=== PATIENT | female | born 1940 | race Hispanic/Latino ===

== ENCOUNTER 2018-03-16 13:07 | Inpatient (IN) | payer MEDICARE, OTHER ==
--- NOTE | 2018-03-16 13:49 | ED PDOC ---
Arrival/HPI - General Chief Complaint: Shortness Of Breath Time Seen by Provider: 03/16/18 13:21 Historian: Patient, Family - History of Present Illness Narrative History of Present Illness (Text): 03/16/18 13:45 77 year old female, with past medical history of COPD and Lung CA, presents to the Emergency Department complaining of shortness of breath associated with cough for past 3 days. Patient informs worsening symptoms this morning prompting her to present to the Emergency Department fro medical evaluation. Patient states symptoms are similar to her past episodes of COPD. Patient denies any other associated somatic complaints. Patient denies any fever, chills, nausea, vomiting, diarrhea, abdominal pain, chest pain, headache, dizziness, neck pain, back pain, or any other complaints. As per son, patient has not been started on chemotherapy yet secondary to insurance complications. PMD: Dr. Hernández Time/Duration: < week Symptom Onset: Gradual Symptom Course: Unchanged Activities at Onset: Light Context: Home Past Medical History - Provider Review Nursing Documentation Reviewed: Yes - Infectious Disease Hx of Infectious Diseases: None - Tetanus Immunization Tetanus Immunization: Unknown - Reproductive Menopause: Yes - Cardiac Hx Pacemaker: No - Pulmonary Hx Chronic Obstructive Pulmonary Disease (COPD): Yes Hx Lung Cancer: Yes - Neurological Hx Paralysis: No - Hematological/Oncological Hx Blood Transfusions: No Hx Blood Transfusion Reaction: No - Musculoskeletal/Rheumatological Hx Musculoskeletal Disorders: Yes - Psychiatric Hx Emotional Abuse: No Hx Physical Abuse: No Hx Substance Use: No - Anesthesia Hx Anesthesia Reactions: No Hx Malignant Hyperthermia: No - Suicidal Assessment Feels Threatened In Home Enviroment: No Family/Social History - Physician Review Nursing Documentation Reviewed: Yes Family/Social History: Unknown Family HX Smoking Status: Former Smoker Hx Alcohol Use: No Hx Substance Use: No Hx Substance Use Treatment: No Allergies/Home Meds Allergies/Adverse Reactions: Allergies No Known Allergies Allergy (Unverified 06/30/14 10:53) Home Medications: Home Meds Medication Instructions Recorded Confirmed Albuterol Sulfate [Proair Hfa] 0.09 mg IH PRN PRN 01/25/18 02/01/18 Fluticasone/Vilanterol [Breo 1 pow IH DAILY 01/25/18 02/01/18 Ellipta] RX: Ipratropium Odon 5 gm INH QID 01/25/18 02/01/18 Review of Systems - Physician Review All systems were reviewed & negative as marked: Yes - Review of Systems Constitutional: absent: Fevers Respiratory: SOB, Cough Cardiovascular: absent: Chest Pain Gastrointestinal: absent: Abdominal Pain, Diarrhea, Nausea, Vomiting Genitourinary Female: absent: Dysuria Musculoskeletal: absent: Back Pain, Neck Pain Skin: absent: Rash Neurological: absent: Headache, Dizziness Physical Exam Vital Signs Reviewed: Yes Vital Signs Temp Pulse Resp BP Pulse Ox 03/16/18 13:32 21 94 L 03/16/18 13:31 98.6 F 124 H 21 121/64 91 L 03/16/18 13:15 97.6 F 96 H 18 97/65 L 96 Temperature: Afebrile Blood Pressure: Normal Pulse: Tachycardic Respiratory Rate: Normal Appearance: Positive for: Well-Appearing, Non-Toxic, Comfortable Pain Distress: None Mental Status: Positive for: Alert and Oriented X 3 - Systems Exam Head: Present: Atraumatic, Normocephalic Pupils: Present: PERRL Extroacular Muscles: Present: EOMI Conjunctiva: Present: Normal Mouth: Present: Moist Mucous Membranes Neck: Present: Normal Range of Motion Respiratory/Chest: Present: Decreased Breath Sounds (diminished breath sounds symmetrically). No: Respiratory Distress, Accessory Muscle Use Cardiovascular: Present: Regular Rate and Rhythm, Normal S1, S2. No: Murmurs Abdomen: No: Tenderness, Distention, Peritoneal Signs Back: Present: Normal Inspection Upper Extremity: Present: Normal Inspection. No: Cyanosis, Edema Lower Extremity: Present: Normal Inspection. No: Edema Neurological: Present: GCS=15, CN II-XII Intact, Speech Normal Skin: Present: Warm, Dry, Normal Color. No: Rashes Psychiatric: Present: Alert, Oriented x 3, Normal Insight, Normal Concentration Medical Decision Making ED Course and Treatment: 03/16/18 13:32 Impression: 77 year old female presents to the Emergency Department complaining of shortness of breath and cough. Plan: -- VBG -- EKG -- Labs -- Chest X-ray -- Albuterol -- solumedrol -- Urinalysis -- Reassess and disposition Prior Visits: Notes and results from previous visits were reviewed. Progress Notes: 03/16/18 13:32 EKG: Ordered, reviewed, and independently interpreted the EKG. Rate :127 BPM Rhythm : Sinus Tachycardia Interpretation : Non-specific ST/T wave changes. Poor progression secondary to artifact. 03/16/18 17:08 wheezing improving but persistent. case discussed with dr lucas requests margaux and svitlana and admission. - RAD Interpretation Narrative RAD Interpretations (Text): 03/16/18 14:55 Chest X-ray reviewed by radiologist, shows: FINDINGS: LUNGS: Medial left upper lobe lung mass unchanged. The lungs are otherwise clear PLEURA: No significant pleural effusion identified, no pneumothorax apparent. CARDIOVASCULAR: No aortic atherosclerotic calcification present. Normal cardiac size. No pulmonary vascular congestion. OSSEOUS STRUCTURES: No significant abnormalities. VISUALIZED UPPER ABDOMEN: Normal. OTHER FINDINGS: None. IMPRESSION: Medial left upper lobe lung mass unchanged. The lungs are otherwise clear Radiology Orders: 03/16/18 13:32 CHEST PORTABLE [RAD] Stat Tray Line Worker: Radiologist - Medication Orders Current Medication Orders: Albuterol/Ipratropium (Duoneb 3 Mg/0.5 Mg (3 Ml) Ud) 3 ml IH Q15M [place] Stop: 03/16/18 14:16 Discontinued Medications Methylprednisolone (Solu-Medrol) 125 mg IVP STAT STA Stop: 03/16/18 13:34 - Scribe Statement The provider has reviewed the documentation as recorded by the Scribe Sebastián Maloney. All medical record entries made by the Scribe were at my direction and personally dictated by me. I have reviewed the chart and agree that the record accurately reflects my personal performance of the history, physical exam, medical decision making, and the department course for this patient. I have also personally directed, reviewed, and agree with the discharge instructions and disposition. Disposition/Present on Arrival - Present on Arrival Any Indicators Present on Arrival: No History of DVT/PE: No History of Uncontrolled Diabetes: No Urinary Catheter: No History of Decub. Ulcer: No History Surgical Site Infection Following: None - Disposition Have Diagnosis and Disposition been Completed?: Yes Diagnosis: COPD (chronic obstructive pulmonary disease), Lung cancer, UTI (urinary tract infection), CHF (congestive heart failure) Disposition: HOSPITALIZED Disposition Time: 16:00 Condition: FAIR Discharge Instructions (ExitCare): Heart Failure (ED) Referrals: Harry Hernández MD [Primary Care Provider] - Follow up with primary Forms: [employer] (Armenian)
[2018-03-16] MEDS: Albuterol-Ipratrop 3 mg / 0.5 (3 ml) UD IH SCH ×3 (13:50→14:21)
[2018-03-16 14:13] LABS: VENOUS BLOOD GAS BASE EXCESS -0.2 mmol/L (0.0-2.0); VENOUS BLOOD GAS PO2 60 mm/Hg (30-55); VENOUS BLOOD PH 7.39 (7.32-7.43)
[2018-03-16 14:15] LABS: BASO # 0.04 K/mm3 (0.0-2.0); BASO % 0.2 % (0.0-3.0); EOS # 0.1 (0.0-0.7); EOS % 0.3 % (1.5-5.0); GRAN # 13.85 (1.4-6.5); GRAN % 84.2 % (50.0-68.0); HEMOGLOBIN 11.9 g/dL (12.0-16.0); LYMPH # 1.5 (1.2-3.4); MEAN CELL VOLUME 87.7 fl (80.0-105.0); MEAN CORPUSCULAR HEMOGLOBIN 29.9 pg (25.0-35.0); MEAN CORPUSCULAR HGB CONC 34.1 g/dl (31.0-37.0); MEAN PLATELET VOLUME 8.9 fl (7.0-11.0); MONO % 6.3 % (1.0-6.0); RBC 3.98 10^6/uL (3.5-6.1); RED CELL DISTRIBUTION WIDTH 12.9 % (11.5-14.5); WHITE BLOOD COUNT 16.5 10^3/uL (4.5-11.0)
[2018-03-16 14:24] LABS: ALB/GLOB RATIO 1.1 (1.1-1.8); ALBUMIN 3.6 g/dL (3.0-4.8); ALT/SGPT 59 U/L (7-56); AST/SGOT 51 U/L (14-36); BLOOD UREA NITROGEN 11 mg/dL (7-21); GFR NON-AFRICAN AMERICAN > 60; INR 1.31; PARTIAL THROMBOPLASTIN TIME 27.6 Seconds (25.1-36.5)
--- NOTE | 2018-03-16 14:32 | RAD ---
Date of service: 03/16/2018 HISTORY: sob COMPARISON: 02/01/2018 FINDINGS: LUNGS: Medial left upper lobe lung mass unchanged. The lungs are otherwise clear PLEURA: No significant pleural effusion identified, no pneumothorax apparent. CARDIOVASCULAR: No aortic atherosclerotic calcification present. Normal cardiac size. No pulmonary vascular congestion. OSSEOUS STRUCTURES: No significant abnormalities. VISUALIZED UPPER ABDOMEN: Normal. OTHER FINDINGS: None. IMPRESSION: Medial left upper lobe lung mass unchanged. The lungs are otherwise clear
[2018-03-16 14:36] LABS: B-TYPE NATRIURETIC PEPTIDE 1190 pg/mL (0-450); TROPONIN I 0.03 ng/mL
[2018-03-16] MEDS ORDERED: Iohexol 350 MG/100 ML VIAL ONE (14:38)
--- NOTE | 2018-03-16 15:29 | CT ---
Date of service: 03/16/2018 PROCEDURE: CT Chest with contrast (Pulmonary Angiogram) HISTORY: elevated dimer COMPARISON: None available. TECHNIQUE: Axial computed tomography images were obtained of the chest in the pulmonary arterial phase of enhancement. Coronal and sagittal reformatted images were created and reviewed. Intravenous contrast dose: 100 cc of Omni 350 Radiation dose: Total exam DLP = 142.12 mGy-cm. This CT exam was performed using one or more of the following dose reduction techniques: Automated exposure control, adjustment of the mA and/or kV according to patient size, and/or use of iterative reconstruction technique. FINDINGS: PULMONARY ARTERIES: Unremarkable. No pulmonary embolism. AORTA: No acute findings. No thoracic aortic aneurysm. Aortic calcification LUNGS: There is a 28 x 32 mm lung mass adjacent to the aortic arch. There is encasement of the left upper lobe pulmonary artery. Image 39 series 6 There is parenchymal scarring in both lung apices. PLEURAL SPACES: Unremarkable. No effusion or pneumothorax. HEART: Unremarkable. No cardiomegaly. No significant pericardial effusion. LYMPH NODES: No lymphadenopathy. BONES, CHEST WALL: Unremarkable. No fracture or destructive lesion OTHER FINDINGS: Unremarkable. IMPRESSION: Unremarkable CT pulmonary angiogram. No pulmonary embolus. There is a 28 x 32 mm lung mass adjacent to the aortic arch. There is encasement of the left upper lobe pulmonary artery.
[2018-03-16 16:49] LABS: PH,URINE 6.5 (4.7-8.0); URINE BILIRUBIN NEGATIVE (NEGATIVE); URINE BLOOD MODERATE (NEGATIVE); URINE GLUCOSE (UA) NEGATIVE (NEGATIVE); URINE LEUKOCYTE ESTERASE MODERATE Leu/uL (NEGATIVE); URINE PROTEIN TRACE mg/dL (<30 mg/dL); URINE UROBILINOGEN 0.2 E.U./dL (<1 E.U./dL)
[2018-03-16 16:51] LABS: URINE APPEARANCE SLIGHT-CLOUDY (CLEAR); URINE COLOR YELLOW (YELLOW)
[2018-03-16] MEDS ORDERED: levoFLOXacin 750 mg in D5W 750 MG/150 ML BAG IVPB STA (16:52)
[2018-03-16 16:54] LABS: URINE BACTERIA FEW (NEG); URINE WBC 25 - 30 /hpf (0-6)
--- NOTE | 2018-03-16 18:30 | CARD ---
APPROVED REPORT Date of service: 03/16/2018 EKG Measurement Heart [id number] <Conclusion> Sinus tachycardia Nonspecific ST and T wave abnormality Abnormal ECG
[2018-03-16 21:20] VITALS: BMI 16.5
[2018-03-16] MEDS ORDERED: Albuterol 0.083% Inhal Sol (2.5 mg/3 mL) UD IH PRN (21:43)
[2018-03-16] MEDS: MethylPREDNISolone 40 mg Vial IVP SCH (21:57)
[2018-03-16] MEDS ORDERED: IPRATROPIUM BROMIDE INH SCH (22:00)
--- NOTE | 2018-03-17 02:32 | HP ---
DATE OF EXAM: 03/16/2018 CHIEF COMPLAINT: Shortness of breath. Patient is seen and examined at the bedside on 03/16/2018. HISTORY OF PRESENT ILLNESS: Ms. Caroline Ibarra is a 77-year-old female with past medical history of COPD, lung CA, came to the emergency department complaining of shortness of breath associated with cough for the past three days. Patient informs worsening of symptoms this morning prompting her to come to the emergency department for medical evaluation. Patient states symptoms are similar to her past episodes of COPD exacerbation. Patient denies any other associated somatic complaints. No fever. No chills. No nausea, vomiting, or diarrhea. No hematuria or hematochezia. No swelling of the legs. No neck pain or back pain. Patient has not been started on chemotherapy yet , due to insurance complications as per er documantation . PAST MEDICAL HISTORY: COPD, history of lung cancer. FAMILY HISTORY: Father and mother, noncontributory. HABITS: Former smoker. No drugs. No ethanol. ALLERGIES: PATIENT IS NOT ALLERGIC WITH ANY MEDICATIONS. HOME MEDICATIONS: Ipratropium, Breo, and albuterol. REVIEW OF SYSTEMS: Patient was seen and examined at the bedside in the emergency room. Still coughing with shortness of breath. No fever. No chills. No chest pain. No abdominal pain. No diarrhea, nausea, or vomiting. No dysuria. No neck pain. No rash. No headache. No dizziness. No hematuria or hematochezia. PHYSICAL EXAMINATION: VITALS: Temperature 97.6, pulse 96, respiratory rate 18, and blood pressure 97/65. HEENT: Head normocephalic, atraumatic. Eyes, PERRLA. Extraocular muscles intact. Conjunctivae clear. Nose patent. Mucous membrane moist. NECK: Supple. No carotid bruit. No JVD. No thyromegaly. CHEST: Bilaterally symmetrical. HEART: S1, S2 positive. LUNGS: Clear to auscultation. ABDOMEN: Soft. Bowel sounds positive. No organomegaly. EXTREMITIES: No edema. No cyanosis. NEUROLOGIC: Patient is awake, alert, moving all four extremities. No focal deficit. LABORATORY DATA: White blood cell 16.5, hemoglobin 11.9, hematocrit 34.9, and platelets 382. Sodium 131, potassium 4.1. BUN 11, creatinine 0.7, and glucose 128. ASSESSMENT AND PLAN: Ms. Caroline Ibarra is a 77-year-old lady with hyponatremia, hypochloremia, hyperglycemia, hypomagnesemia, abnormal liver function test, high brain natriuretic peptide, rule out congestive heart failure, leukocytosis, anemia, proteinuria, ketonuria, hematuria, and urinary tract infection, came with exacerbation of chronic obstructive pulmonary disease, asthma. CAT scan of chest is done, has a sinus tachycardia. Wheezing improved after treatment. Chest x-ray shows medial left upper lung mass unchanged. The lungs are otherwise clear. So, primary admitting diagnoses are chronic obstructive pulmonary disease exacerbation, lung cancer, urinary tract infection, congestive heart failure. Admitted the patient, started on antibiotics. Pulmonary and Cardiology consult called. Gastrointestinal and deep vein thrombosis prophylaxes. Repeat labs. We will follow up. Key Dean MD KIESHA
[2018-03-17] MEDS: Albuterol-Ipratrop 3 mg / 0.5 (3 ml) UD IH SCH ×3 (03:16→13:49)
[2018-03-17] MEDS: Enoxaparin 30 mg Syringe SC SCH (09:23)
[2018-03-17] MEDS: MethylPREDNISolone 40 mg Vial IVP SCH ×2 (09:24→21:08)
[2018-03-17] MEDS: cefTRIAXone 1 gm 1 GM/100 ML BAG IVPB SCH (09:25)
[2018-03-17] MEDS: Non Formulary Medication (Fluticasone/Vilanterol [Breo Ellipta 100-25 Mcg Inh] 1 POW) IH SCH (09:31)
--- NOTE | 2018-03-17 13:19 | CON ---
DATE: 03/17/2018 CONSULT SERVICE: Cardiology. REASON FOR CONSULTATION AND FOLLOWUP: Shortness of breath. BRIEF CLINICAL HISTORY: This is a 77-year-old female with past medical history significant for COPD, lung CA, came to the emergency room complaining of shortness of breath, progressively worsening over the last 3 days. The patient was unable to sleep and had orthopnea and PND, woke up 2-3 times during the sleep. Denies any chest pain. Denies any palpitation. Denies any nausea or vomiting. PAST MEDICAL HISTORY: Significant for COPD and lung cancer. FAMILY HISTORY: Noncontributory. SOCIAL HISTORY: Active tobacco smoker, quit one month ago, before the patient started pack a day at the age of 16, continued until age of 61, then she cut down to half a pack from age 61 till one month before. History of alcohol abuse also. ALLERGIES: NO KNOWN DRUG ALLERGIES. CURRENT MEDICATIONS: The patient is taking ipratropium, Breo, and albuterol. REVIEW OF SYSTEMS: As per HPI. PHYSICAL EXAMINATION: GENERAL: Height of the patient 5 feet 5 inches, weight of the patient 99 pounds, body mass index 15.5 kg per meter square. VITAL SIGNS: Temperature afebrile, heart rate 78, blood pressure 115/68. HEENT: PERRLA. Extraocular muscles intact. NECK: Supple. No carotid bruits or thyromegaly. CHEST: Clear to auscultation. HEART: S1 and S2, regular. ABDOMEN: Soft. EXTREMITIES: Clubbing and cyanosis negative. LABORATORY DATA: EKG shows sinus tachycardia, but telemetry strip shows normal sinus. Blood workup: WBC 16.5, hemoglobin 11.9, hematocrit 34.9, and platelet count 382. Chemistry shows sodium 131, potassium , chloride 95, carbon dioxide 15, anion gap of 15, BUN of 11, creatinine 0.5. BNP elevated at 90. IMPRESSION: A 77-year-old female, active tobacco abuse, quit one month ago, history of lung cancer, recent CT scan is negative for pulmonary embolism, but shows 2.8 cm x 3.2 cm lung mass adjacent to the aortic arch encasing the left upper lobe pulmonary artery, admitted with shortness of breath. consistent with an emphysematous chest, mild pulmonary congestion, possibly lung cancer. Shortness of breath is probably secondary to underlying progressive disease. EKG shows sinus tachycardia. RECOMMENDATIONS: We are going to start low-dose beta-aziza, lipid profile, TSH, and hemoglobin A1c. We will get echo to assess LV function. Further recommendations depending on the hospital course. We will follow with you. I agree with Dr. Dean's management to start baby aspirin, gentle diuretics, and DVT prophylaxis. We will follow with you. Does not appear to be acute cardiac symptoms at this point, but we will follow. Thank you, Dr. Dean, for providing us the opportunity in taking care of the patient, Caroline Ibarra. Brad Smith MD
--- NOTE | 2018-03-17 18:38 | CARD ---
APPROVED REPORT Date of service: 03/17/2018 EXAM: Two-dimensional and M-mode echocardiogram with Doppler and color Doppler. INDICATION Dyspnea LVFX 2D DIMENSIONS Left Atrium (2D)2.9 (1.6-4.0cm)IVSd0.6 (0.7-1.1cm) LVDd4.2 (3.9-5.9cm)PWd0.9 (0.7-1.1cm) LVDs3.2 (2.5-4.0cm)FS (%) 25.5 % LVEF (%)50.7 (>50%) M-Mode DIMENSIONS Aortic Root3.00 (2.2-3.7cm)Aortic Cusp Exc.1.50 (1.5-2.0cm) Aortic Valve AoV Peak Nynswigq088.0cm/Nando Peak GR.14mmHg Mitral Valve MV E Npkrpxua10.8cm/sMV A Ebasamic10.8cm/sE/A ratio0.6 TDI Lateral E' Peak V7.41cm/sMedial E' Peak V7.02cm/sE/Lateral E'7.7 E/Medial E'8.1 Pulmonary Valve PV Peak Uoopmkgo54.1cm/sPV Peak Grad.2mmHg Tricuspid Valve TR Peak Kifemgqz833fb/sRAP SFBRAFET55olAxUS Peak Gr.34mmHg [id number] LEFT VENTRICLE The left ventricle is normal size. There is normal left ventricular wall thickness. The systolic function is mildly impaired to low normal; EF_45-50% There is mild hypokinesis in the apical anterior wall. Transmitral Doppler flow pattern is Grade III-reversible restrictive diastolic dysfunction. No left ventricle thrombus noted on this study. There is no ventricular septal defect visualized. There is no left ventricular aneurysm. There is no mass noted in the left ventricle. RIGHT VENTRICLE The right ventricle is mildly dilated. There is normal right ventricular wall thickness. Systolic function of RV is mildly reduced. ATRIA The left atrium size is normal. The right atrium is mildly dilated. The interatrial septum is intact with no evidence for an atrial septal defect. AORTIC VALVE The aortic valve is thickened but opens well. The aortic valve is mildly to moderately sclerotic. There is trace aortic regurgitation. There is mild valvular aortic stenosis. VS Aortic Sclerosis MITRAL VALVE The mitral valve is thickened but opens well. Mitral regurgitation is trace. There is no mitral valve stenosis. There is no evidence of mitral valve prolapse. TRICUSPID VALVE The tricuspid valve leaflets are thickened , but open well. There is moderate tricuspid regurgitation.RVSP-44 mmof hg. There is no tricuspid valve stenosis. There is no tricuspid valve prolapse or vegetation. PULMONIC VALVE The pulmonary valve is normal in structure. There is no pulmonic valvular regurgitation. There is no pulmonic valvular stenosis. GREAT VESSELS The aortic root is normal in size. The ascending aorta is normal in size. The pulmonary artery is normal. The IVC is normal in size and collapses >50% with inspiration. PERICARDIAL EFFUSION There is no pleural effusion. There is a trace pericardial effusion. <Conclusion> The left ventricle is normal size. There is normal left ventricular wall thickness. The systolic function is mildly impaired to low normal; EF_45-50% The right ventricle is mildly dilated. Systolic function of RV is mildly reduced. There is trace aortic regurgitation. There is mild valvular aortic stenosis. VS Aortic Sclerosis Mitral regurgitation is trace. There is moderate tricuspid regurgitation.RVSP-44 mmof hg. The IVC is normal in size and collapses >50% with inspiration.
--- NOTE | 2018-03-18 00:27 | PN ---
DATE: 03/17/2018 SUBJECTIVE: The patient was seen and examined on the bedside on 03/17/2018. This progress note is for 03/17/2018. Looking comfortable. Still coughing with shortness of breath, but a little bit better. No fever. No chills. According to the patient, she cannot sleep at night because of orthopnea and PND. Woke up 2-3 times during sleep. No fever. No chills. No hematuria or hematochezia. No swelling of the leg. PHYSICAL EXAMINATION: VITAL SIGNS: Temperature 98.6, pulse 78, blood pressure 120/60, respiratory rate 18. HEENT: Head normocephalic, atraumatic. Eyes PERRLA. Extraocular muscles intact. Conjunctivae clear. Nose patent. NECK: Supple. No carotid bruit. No JVD or thyromegaly. CHEST: Bilaterally symmetrical. HEART: S1 and S2 positive. LUNGS: Clear to auscultation. ABDOMEN: Soft. Bowel sounds positive. No organomegaly. EXTREMITIES: No edema. No cyanosis. NEUROLOGICAL: The patient is awake and alert. Moving all 4 extremities. No focal deficits. LABORATORY DATA: White blood cells 16.5, hemoglobin 11.9, hematocrit 34.9, platelets 382. Chloride 95, BUN 11, creatinine 0.5. ASSESSMENT AND PLAN: Ms. Caroline Ibarra, a 77-year-old female, active smoker abuse, quit 1 month ago. Has history of lung cancer. Chemo and radiation not started yet. Came with shortness of breath. Recent CT scan is negative for pulmonary embolism, but there 2.8 cm x 3.2 cm lung mass adjacent to the aortic arch encasing the left upper lobe pulmonary artery. The patient has emphysema, pulmonary congestion. Shortness of breath may be secondary to underlying progressive disease. Has sinus tachycardia. Dr. Smith started low-dose beta blockers. We will check labs. Continue aspirin. Gentle diuretics. Deep venous thrombosis and gastrointestinal prophylaxis. Pulmonary consult called. Repeat labs. We will follow up. Key Dean MD
[2018-03-18] MEDS: Albuterol-Ipratrop 3 mg / 0.5 (3 ml) UD IH SCH ×3 (01:39→13:56)
--- NOTE | 2018-03-18 03:44 | CON ---
DATE: 03/17/2018 PULMONARY CONSULTATION REFERRING PHYSICIAN: Key Dean MD REASON FOR CONSULTATION: Cough, shortness of breath, and lung cancer. HISTORY OF PRESENT ILLNESS This is a 77 years old female, known history of unresectable squamous cell lung cancer, chronic obstructive lung disease, being followed by Dr. Souza as outpatient for Oncology. Arrangement has been made for chemotherapy as outpatient. Apparently, there is some insurance issue, the patient has a large but now comes into the emergency room with cough, shortness of breath, and wheezing. In ER, received inhaled bronchodilator and also IV bronchodilator. She feels little better. No hemoptysis. No hematemesis or hematuria. No diarrhea reported. PAST MEDICAL HISTORY: Recently diagnosed with squamous cell lung cancer, which is unresectable and chronic obstructive lung disease. ALLERGIES: NONE KNOWN. SOCIAL HISTORY: Former smoker. Denies any alcohol use. FAMILY HISTORY: No significant cardiopulmonary disease reported. MEDICATIONS: She is on albuterol/Atrovent nebulizer every 6 hours p.r.n. also every 6 hours [id number], Ecotrin 81 mg daily. Outpatient she was getting Breo 100/25 one puff daily, Lasix 40 mg twice a day, Lovenox 30 mg subcuteneously daily, Pepcid 40 mg at bedtime, getting Rocephin 1 g daily, Solu-Medrol 40 mg every 12 hours, and Tylenol p.r.n. basis. REVIEW OF SYSTEMS: No headache. No rhinitis. Has cough, shortness of breath, and wheezing. No nausea. No vomiting, diarrhea, leg pain, or leg swelling. PHYSICAL EXAMINATION: GENERAL: No acute distress. VITAL SIGNS: Temperature is 98, heart rate 90, respiratory rate is 18, blood pressure 101/57, and pulse ox 98% on room air. HEENT: Moist mucous membrane. Crowded airway. NECK: Supple. No JVD. LUNGS: Bilateral expiratory wheezing. Few crackles at the bases. HEART: S1 and S2. ABDOMEN: Soft and nontender. No organomegaly. EXTREMITIES: No edema. NEUROLOGIC: Awake, alert, and follow simple command. According to , she is becoming more forgetful recently. LABORATORY DATA: Shows hemoglobin 11.9, hematocrit 34.9, WBC 16.5, and platelet is 382. INR 1.31 and PTT is 28. D-dimer is 722. VBG show pH of 7.39, pCO2 of 41, and O2 of 60 this is on room air. Sodium 131, potassium 4.1, chloride 95, bicarbonate 25, BUN 11, creatinine 0.7, glucose is 128, calcium 9, and magnesium 1.6. Total bili 1, AST 51, ALT 59, and alk phos is 132. Troponin less than 0.03. ProBNP 1190. Albumin is 3.6. Urinalysis shows wbc 25 to 30 and rbc [address] scan of the chest done in ER, which shows unremarkable CT pulmonary angiogram, no pulmonary embolism but there is 28 x 32 mm lung mass adjacent to the aortic arch. There are encasement of the left upper lobe pulmonary arteries. She has echocardiogram done today, which shows right ventricular systolic pressure is 44, LV ejection fraction 45-50, mild valvular heart disease. IMPRESSION AND PLAN: Unresectable lung cancer, chronic obstructive lung disease, cardiomyopathy, decreased left ventricular function, pulmonary hypertension. Has a CT scan of the head done there is no metastatic disease. At this point, we will continue IV inhaled bronchodilator. Continue antibiotics. May have to re-consult Oncology services. May need radiation therapy to the mass along with chemotherapy. Gastric and deep venous thrombosis prophylaxes. Thank you and we will follow with you Brad Rocha MD
--- NOTE | 2018-03-18 07:07 | CP.PCM.PN ---
Subjective - Date & Time of Evaluation Date of Evaluation: 03/18/18 Time of Evaluation: 06:25 - Subjective Subjective: Awake, alert, no distress, feels cold, no appetite Reason for consultation and follow up: Cardiac evaluation of shortness of breath, history of COPD and lung cancer,former smoker Seen and examined by me and Dr. Smith Objective - Vital Signs/Intake and Output Vital Signs (last 24 hours): Temp Pulse Resp BP Pulse Ox 97 F L 82 20 121/70 97 03/18/18 00:01 03/18/18 06:00 03/18/18 00:01 03/18/18 00:01 03/18/18 00:01 Intake and Output: 03/18/18 03/18/18 06:59 18:59 Intake Total 1620 Balance 1620 - Medications Medications: Current Medications Acetaminophen (Tylenol 325mg Tab) 650 mg PO Q4H PRN PRN Reason: pain fever Albuterol Sulfate (Albuterol 0.083% Inhal Stacie (2.5 Mg/3 Ml) Ud) 2.5 mg IH [id number] PRN PRN Reason: Shortness of Breath Albuterol/Ipratropium (Duoneb 3 Mg/0.5 Mg (3 Ml) Ud) 3 ml IH [id number] [place] Last Admin: 03/18/18 01:39 Dose: Not Given Aspirin (Ecotrin) 81 mg PO DAILY [facility] Last Admin: 03/17/18 09:24 Dose: 81 mg Enoxaparin Sodium (Lovenox) 30 mg SC DAILY [place]; Protocol Last Admin: 03/17/18 09:23 Dose: 30 mg Famotidine (Pepcid) 40 mg PO HS [facility] Last Admin: 03/17/18 21:09 Dose: 40 mg Furosemide (Lasix) 40 mg IVP Q12 [place] Last Admin: 03/17/18 21:08 Dose: Not Given Ceftriaxone Sodium (Rocephin 1 Gram Ivpb) 1 gm in 100 mls @ 100 mls/hr IVPB DAILY [facility]; Protocol Stop: 03/21/18 10:59 Last Admin: 03/17/18 09:25 Dose: 100 mls/hr Methylprednisolone (Solu-Medrol) 40 mg IVP Q12 [facility] Last Admin: 03/17/18 21:08 Dose: 40 mg Non-Formulary Medication (Fluticasone/Vilanterol [Breo Ellipta 100-25 Mcg Inh]) 1 pow IH DAILY [facility] Last Admin: 03/17/18 09:31 Dose: Not Given - Labs Labs: 03/16/18 13:45 03/16/18 13:45 PT 15.0 SECONDS (9.4-12.5) H 03/16/18 13:45 INR 1.31 03/16/18 13:45 APTT 27.6 Seconds (25.1-36.5) 03/16/18 13:45 - Constitutional Appears: Non-toxic, No Acute Distress - Head Exam Head Exam: NORMAL INSPECTION, NORMOCEPHALIC - Eye Exam Eye Exam: Normal appearance Pupil Exam: NORMAL ACCOMODATION - ENT Exam ENT Exam: Mucous Membranes Dry, Normal Exam - Respiratory Exam Respiratory Exam: Decreased Breath Sounds, Clear to Ausculation Bilateral, NORMAL BREATHING PATTERN - Cardiovascular Exam Cardiovascular Exam: REGULAR RHYTHM, +S1, +S2 Additional comments: No JVD Telemetry NSR with APC's and PVC's - GI/Abdominal Exam GI & Abdominal Exam: Soft, Normal Bowel Sounds Additional comments: no appetite - Extremities Exam Extremities Exam: Full ROM, Normal Capillary Refill - Neurological Exam Neurological Exam: Alert, Awake, Oriented x3 - Psychiatric Exam Psychiatric exam: Normal Affect, Normal Mood - Skin Skin Exam: Dry, Normal Color, Warm Assessment and Plan - Assessment and Plan (Free Text) Assessment: A 77 year old female who came in to the ER due to shortness of breath associated with cough for past 3 days prior to admission.History of COPD and lung cancer. Quit smoking one month ago. 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 Shortness of breath probably secondary to underlying disease. Denies shortness of breath today, claimed to have no appetite.ECHO done- Normal LV size, LVEF 45-50%, mildly impaired systolic function, RV is mildly dilated, Trace aortic regurgitation,trace MR, moderate tricuspid regurgitation. RVSP 44mmHg. Plan: Denies shortness of breath Claimed to no appetite Will order ensure to supplement intake Cardiac status stable Heart rate and blood pressure controlled Started on Lopressor On ASA 81 mg daily,Lovenox 30 mg daily,Lasix 40 mg every 12 hours Solumedrol 40 mg IV every 12 hours Continue current treatment Continue current medications Chart reviewed Will follow up Plan and treatment discussed with Dr. Smith
--- NOTE | 2018-03-18 08:17 | CT ---
Date of service: 03/17/2018 PROCEDURE: CT HEAD WITHOUT CONTRAST. HISTORY: ams COMPARISON: None available. TECHNIQUE: Axial computed tomography images were obtained through the head/brain without intravenous contrast. Radiation dose: Total exam DLP = 801.55 mGy-cm. This CT exam was performed using one or more of the following dose reduction techniques: Automated exposure control, adjustment of the mA and/or kV according to patient size, and/or use of iterative reconstruction technique. FINDINGS: HEMORRHAGE: No intracranial hemorrhage. BRAIN: No mass effect or edema. Chronic microvascular changes. Mild atrophy VENTRICLES: Unremarkable. No hydrocephalus. CALVARIUM: Unremarkable. PARANASAL SINUSES: Unremarkable as visualized. No significant inflammatory changes. MASTOID AIR CELLS: Unremarkable as visualized. No inflammatory changes. OTHER FINDINGS: The report concurs with the preliminary [facility] report IMPRESSION: No acute intracranial findings
[2018-03-18] MEDS: Enoxaparin 30 mg Syringe SC SCH (09:48)
[2018-03-18] MEDS: cefTRIAXone 1 gm 1 GM/100 ML BAG IVPB SCH (09:49)
[2018-03-18] MEDS: Non Formulary Medication (Fluticasone/Vilanterol [Breo Ellipta 100-25 Mcg Inh] 1 POW) IH SCH (09:50)
[2018-03-18] MEDS: MethylPREDNISolone 40 mg Vial IVP SCH ×2 (09:57→21:28)
[2018-03-18 12:08] LABS: HEMOGLOBIN 12.6 g/dL (12.0-16.0); MEAN CELL VOLUME 87.5 fl (80.0-105.0); MEAN CORPUSCULAR HEMOGLOBIN 29.7 pg (25.0-35.0); MEAN PLATELET VOLUME 9.2 fl (7.0-11.0); RBC 4.24 10^6/uL (3.5-6.1); RED CELL DISTRIBUTION WIDTH 12.9 % (11.5-14.5); WHITE BLOOD COUNT 20.3 10^3/uL (4.5-11.0)
[2018-03-18 12:16] LABS: ALB/GLOB RATIO 1.1 (1.1-1.8); ALBUMIN 4.1 g/dL (3.0-4.8); ALT/SGPT 43 U/L (7-56); AST/SGOT 39 U/L (14-36); BLOOD UREA NITROGEN 22 mg/dL (7-21); CALCIUM 9.7 mg/dL (8.4-10.5); GFR NON-AFRICAN AMERICAN > 60
[2018-03-18] MEDS ORDERED: Sodium Chloride 0.9% 500 ML IV STA (16:05)
--- NOTE | 2018-03-18 16:29 | CP.PCM.PN ---
Subjective - Date & Time of Evaluation Date of Evaluation: 03/18/18 Time of Evaluation: 16:18 - Subjective Subjective: House Doctor CUFF RUNNER Note - Candace PGY - 2 Subjective/Objective Code star was called on this 77 F with pertinent medical history of COPD and AMS. Patient was AAOX2 (not to time), but was able to provide some history, including making jovial comments. She stated that she "tried to work sideways - I guess that doesn't work." RN also provided history and stated that patient did not hit her head, but fell on her buttocks when she got up to walk around. Fall was witnessed by RN. Patient denied falling on her head as well, but did state that she fell on her buttocks. Patient denied any pain or tenderness. Of note, patient was given non-skid socks but she took them off and put her own on. On exam, patient's vitals were tachycardia and orthostatic hypotension, but otherwise stable; blood glucose was also stable. CN II-XII were intact, patient was at baseline since admission mentation, and patient's motor and sensation were intact in bilateral UE and LE as well as torso and face. Patient had no ecchymosis at fall site. No hematoma or apparent bleeding noted. Remainder exam revealed tachycardia but otherwise regular rhythm, CTAB, soft, non tender belly with normal bowel sounds X 4Q. Assessment 77 F s/p fall on buttocks, likely 2/2 orthostatic hypotension. However, tropes were elevated from last admission on initial labs, so cardiac syncope should be ruled out. Patient has no gross neurological deficits with no apparent head trauma per exam and history provided by both patient and witnesses. Plan - Fluid bolus of 500 ml over 1 hour in light of mild BNP elevation of 1140 - Tylenol PRN q8 in light of extremely mild LFT elevation and AMS (do not want narcotics) - Pelvic XR bilateral in view of elderly female - Will obtain H&H at 6:30 in view of elevated coags on admission - EKG, Troponins in view of elevated troponin on admission and possible cardiac etiology - 1:1 Objective - Vital Signs/Intake and Output Vital Signs (last 24 hours): Temp Pulse Resp BP Pulse Ox 98.1 F 73 20 104/62 95 03/18/18 08:24 03/18/18 08:24 03/18/18 08:24 03/18/18 09:49 03/18/18 08:24 Intake and Output: 03/18/18 03/18/18 06:59 18:59 Intake Total 1620 Balance 1620 - Medications Medications: Current Medications Acetaminophen (Tylenol 325mg Tab) 650 mg PO Q4H PRN PRN Reason: pain fever Acetaminophen (Tylenol 325mg Tab) 650 mg PO Q6H PRN PRN Reason: Pain, moderate (4-7) Albuterol Sulfate (Albuterol 0.083% Inhal Stacie (2.5 Mg/3 Ml) Ud) 2.5 mg IH [id number] PRN PRN Reason: Shortness of Breath Albuterol/Ipratropium (Duoneb 3 Mg/0.5 Mg (3 Ml) Ud) 3 ml IH [id number] [facility] Last Admin: 03/18/18 13:56 Dose: 3 ml Aspirin (Ecotrin) 81 mg PO DAILY [place] Last Admin: 03/18/18 09:48 Dose: 81 mg Enoxaparin Sodium (Lovenox) 30 mg SC DAILY [place]; Protocol Last Admin: 03/18/18 09:48 Dose: 30 mg Famotidine (Pepcid) 40 mg PO HS [place] Last Admin: 03/17/18 21:09 Dose: 40 mg Furosemide (Lasix) 40 mg IVP Q12 [place] Last Admin: 03/18/18 09:49 Dose: 40 mg Ceftriaxone Sodium (Rocephin 1 Gram Ivpb) 1 gm in 100 mls @ 100 mls/hr IVPB DAILY [place]; Protocol Stop: 03/21/18 10:59 Last Admin: 03/18/18 09:49 Dose: 100 mls/hr Sodium Chloride (Sodium Chloride 0.9%) 500 mls @ 999 mls/hr IV .Q31M [facility] Stop: 03/18/18 16:35 Methylprednisolone (Solu-Medrol) 20 mg IVP Q12 [place] Metoprolol Tartrate (Lopressor) 25 mg PO BRKDIN [facility] Last Admin: 03/18/18 07:58 Dose: Not Given Non-Formulary Medication (Fluticasone/Vilanterol [Breo Ellipta 100-25 Mcg Inh]) 1 pow IH DAILY [facility] Last Admin: 03/18/18 09:50 Dose: Not Given - Labs Labs: 03/18/18 11:53 03/18/18 11:53 PT 15.0 SECONDS (9.4-12.5) H 03/16/18 13:45 INR 1.31 03/16/18 13:45 APTT 27.6 Seconds (25.1-36.5) 03/16/18 13:45
--- NOTE | 2018-03-18 17:17 | RAD ---
PROCEDURE: Radiographs of the pelvis and bilateral hips Radiographs of the Sacrum/Coccyx HISTORY: FALL COMPARISON: None. FINDINGS: BONES: Pelvis: Unremarkable. Sacrum/Coccyx: Unremarkable. Right hip:Unremarkable. Left hip:Unremarkable. JOINTS: Right hip: Joint space narrowing. Left hip: Joint space narrowing. Sacroiliac Joints: Narrowed and sclerotic. Pubic symphysis: Sclerosis. SOFT TISSUES: Normal. OTHER FINDINGS: None. IMPRESSION: No demonstrated fracture or dislocation..
--- NOTE | 2018-03-18 17:25 | PN ---
DATE: 03/18/2018 REASON FOR CONSULTATION AND FOLLOWUP: Cardiac evaluation, admitted with shortness of breath, history of COPD, history of lung cell cancer, excess smoker. The patient had echocardiography done yesterday that revealed ejection fraction 45-50%, right ventricle dilated, RV function mildly reduced, paced aortic regurgitation, mild valvular aortic stenosis and aortic sclerosis, trace mitral regurgitation and moderate tricuspid regurgitation, RV systolic pressure of 44. RECOMMENDATIONS: Continue treatment for COPD, continue diuretics, continue beta-aziza, continue DVT prophylaxis. We will follow with you. Thank you Dr. Dean for providing us the opportunity in taking care of Caroline Ibarra. Brad Smith MD
--- NOTE | 2018-03-18 17:56 | CARD ---
APPROVED REPORT Date of service: 03/18/2018 EKG Measurement Heart [id number] <Conclusion> Normal sinus rhythm Normal ECG
[2018-03-18 18:12] LABS: HEMOGLOBIN 11.3 g/dL (12.0-16.0)
[2018-03-18] MEDS ORDERED: Gadodiamide 287 MG/ML VIAL (15ML) IV ONE (20:33)
[2018-03-18] MEDS: Levalbuterol 0.63 MG/3 ML Inhal Soln UD IH SCH (20:58)
--- NOTE | 2018-03-18 23:56 | PN ---
DATE: 03/18/2018 SUBJECTIVE: The patient was seen and examined in the morning, looking comfortable. Sitting like she is ready to go home. Oriented x2. No fever. No chills. No hematuria or hematochezia. No headache. No dizziness. No chest pain. No palpitation. Later of the day, there was rapid response, because she has fall. Spoke to the medical/surgery registered nurse. X-rays done. PHYSICAL EXAMINATION: VITAL SIGNS: Temperature 97, pulse 82, respiratory rate 20, blood pressure 120/70, pulse oximetry 97. HEENT: Head normocephalic, atraumatic. Eyes PERRLA. Extraocular muscles intact. Conjunctivae clear. Nose patent. NECK: Supple. No carotid bruit. No JVD or thyromegaly. CHEST: Bilaterally symmetrical. HEART: S1 and S2 positive. LUNGS: Clear to auscultation. ABDOMEN: Soft. Bowel sounds positive. No organomegaly. EXTREMITIES: No edema. No cyanosis. NEUROLOGICAL: The patient is awake and alert. Moving all 4 extremities. No focal deficits. MEDICATIONS: Tylenol, albuterol, DuoNeb, Ecotrin, Lovenox, Pepcid, Rocephin, Solu-Medrol. LABORATORY DATA: White blood cells 16.5, hemoglobin 11.9, hematocrit 34.9, platelets 382. Sodium 131, potassium 4.1, BUN 11, creatinine 0.7, glucose 128. ASSESSMENT AND PLAN: Ms. Caroline Ibarra, a 77-year-old female with leukocytosis, anemia, hyponatremia, hypoglycemia, history of chronic obstructive pulmonary disease, lung cancer, quit smoking [address] of lung shows lung mass adjacent to aortic arch. Encasing the left upper lobe pulmonary artery. Echocardiography done. Seen by the manager labor delivery. As per manager labor delivery, continue aspirin, tapering dose of Solu-Medrol. Went for hip, pelvis x-rays. Electrocardiogram done. Sacrum and coccygeal x-rays are done. Status post fall. Coccygeal x-ray shows no demonstrated fracture or dislocation. Hip and pelvis x-rays showed no demonstrated fracture or dislocation. Brain MRI done, results are pending. Document Management Consultant is on the case. The patient has partially altered mental status. Oriented x2 only. Today, she had fall on buttocks. Looks like orthostatic hypotension. No apparent head trauma. Fluid bolus is given by medical/surgery registered nurse. Tylenol p.r.n. Neurology consult called. Gastrointestinal, deep venous thrombosis prophylaxis. Repeat labs. We will follow up. Key Dean MD [facility]
--- NOTE | 2018-03-19 02:38 | PN ---
DATE: 03/18/2018 PULMONARY PROGRESS NOTE REFERRING PHYSICIAN: Dr. Dean. SUBJECTIVE: The patient is sitting at side of the bed, at times confused, under one-to-one supervision. Night was unremarkable. Denied any cough. No shortness of breath. No chest pain. No nausea, vomiting, diarrhea. No leg pain or leg swelling. OBJECTIVE: GENERAL: In no acute distress. VITAL SIGNS: Temperature 98, heart rate 70, respiratory rate 18, blood pressure 114/62, pulse oximetry 96% on room air. HEENT: Moist mucous membranes. No ulcer or thrush noted. NECK: Supple. No JVD. LUNGS: Have a fair airflow with few rhonchi. HEART: S1 and S2. ABDOMEN: Soft, nontender. No organomegaly. EXTREMITIES: There is no edema. NEUROLOGICALLY: Awake, alert. Follow simple commands, but confused. MEDICATIONS: She is on Ecotrin 81 mg daily; Breo Ellipta one puff daily which is on hold; Lasix 40 mg twice a day; metoprolol tartarate 25 mg twice a day; Lovenox 30 mg subcu daily; Pepcid 40 mg daily; Rocephin 1 g daily; Seroquel 25 mg at bedtime; Solu-Medrol 20 mg every 12 hours; Tylenol p.r.n.; Xopenex inhaled every 8 hours. LABORATORY DATA: Shows hemoglobin 12.6, hematocrit 37.1, WBC 20,000, platelet is 534. Sodium 136, potassium 3.9, chloride 97, bicarbonate 28, BUN 22, creatinine 0.8, glucose 130. Calcium 9.7, magnesium 2, AST 39, ALT 43, alkaline phosphatase 130, troponin is 0.03, albumin is 4.1. X-ray of the sacrum and coccygeal done today shows no demonstrated fracture or dislocation. Also had hip and pelvic x-rays, which shows no fracture or dislocation. IMPRESSION AND PLAN: Unresectable lung cancer, chronic obstructive lung disease, cardiomyopathy, decreased left ventricular function, pulmonary hypertension, ____ leukocytosis. Case discussed with nurse practitioner on the floor. Solu-Medrol decreased to 20 mg twice a day, under one-to-one supervision. Fall precaution. Continue antibiotics. MRI of the brain had been ordered to assure there is no metastatic disease to the brain. Brad Rocha MD [facility] # [id number]
--- NOTE | 2018-03-19 03:53 | CON ---
DATE: 03/18/2018 HISTORY OF PRESENT ILLNESS: This is a 77-year-old female with past medical history of lung CA, COPD and came to the hospital with progressive shortness of breath for last three days, and the patient was unable to sleep because of shortness of breath and was waking up two to three times from the sleep. Also complaining of dizziness off and on. PAST MEDICAL HISTORY: COPD and lung cancer. SOCIAL HISTORY: The patient smokes and drinks. ALLERGIES: NO KNOWN DRUG ALLERGY. REVIEW OF SYSTEMS: A 10-point review of systems was negative except shortness of breath and dizziness. PHYSICAL EXAMINATION HEENT: Normocephalic and atraumatic. NECK: Supple. NEUROLOGIC: Awake and oriented to self. Cranial nerves II to XII are tested. Pupils reactive. Spontaneous movement of extremities noted. Deep tendon reflexes are 1+. Both plantars downgoing. Sensory appears intact. Cerebellar gait deferred. IMPRESSION: Dizziness which improved and shortness of breath is better. The patient had a history of lung cancer and chronic obstructive pulmonary disease. CAT scan of the head was done which was negative, no metastatic lesions in the brain. The patient is feeling little better, but still confused, altered mental status. Suggested a Seroquel at night and we will follow up. Robles Aponte MD
--- NOTE | 2018-03-19 07:04 | CP.PCM.PN ---
Subjective - Date & Time of Evaluation Date of Evaluation: 03/19/18 Time of Evaluation: 06:35 - Subjective Subjective: Awake, alert, no distress Reason for consultation and follow up: Cardiac evaluation of shortness of breath, history of COPD and lung cancer,former smoker Seen and examined by me and Dr. Smith Objective - Vital Signs/Intake and Output Vital Signs (last 24 hours): Temp Pulse Resp BP Pulse Ox 97 F L 70 18 114/62 96 03/18/18 16:26 03/18/18 16:51 03/18/18 16:26 03/18/18 21:28 03/18/18 16:26 - Medications Medications: Current Medications Acetaminophen (Tylenol 325mg Tab) 650 mg PO Q4H PRN PRN Reason: pain fever Acetaminophen (Tylenol 325mg Tab) 650 mg PO Q6H PRN PRN Reason: Pain, moderate (4-7) Aspirin (Ecotrin) 81 mg PO DAILY [facility] Last Admin: 03/18/18 09:48 Dose: 81 mg Enoxaparin Sodium (Lovenox) 30 mg SC DAILY [facility]; Protocol Last Admin: 03/18/18 09:48 Dose: 30 mg Famotidine (Pepcid) 40 mg PO HS [facility] Last Admin: 03/18/18 21:25 Dose: 40 mg Furosemide (Lasix) 40 mg PO DAILY [facility] Ceftriaxone Sodium (Rocephin 1 Gram Ivpb) 1 gm in 100 mls @ 100 mls/hr IVPB DAILY [facility]; Protocol Stop: 03/21/18 10:59 Last Admin: 03/18/18 09:49 Dose: 100 mls/hr Levalbuterol HCl (Xopenex) 0.63 mg IH TIDRESP [facility] Last Admin: 03/18/18 20:58 Dose: 0.63 mg Methylprednisolone (Solu-Medrol) 20 mg IVP Q12 [facility] Last Admin: 03/18/18 21:28 Dose: 20 mg Metoprolol Tartrate (Lopressor) 25 mg PO BRKDIN [facility] Last Admin: 03/18/18 16:51 Dose: Not Given Non-Formulary Medication (Fluticasone/Vilanterol [Breo Ellipta 100-25 Mcg Inh]) 1 pow IH DAILY [facility] Last Admin: 03/18/18 09:50 Dose: Not Given Quetiapine Fumarate (Seroquel) 25 mg PO HS [facility]; Protocol Last Admin: 03/18/18 21:25 Dose: 25 mg - Labs Labs: 03/18/18 17:45 03/18/18 11:53 PT 15.0 SECONDS (9.4-12.5) H 03/16/18 13:45 INR 1.31 03/16/18 13:45 APTT 27.6 Seconds (25.1-36.5) 03/16/18 13:45 - Constitutional Appears: Non-toxic, No Acute Distress - Head Exam Head Exam: NORMAL INSPECTION, NORMOCEPHALIC - Eye Exam Eye Exam: Normal appearance Pupil Exam: NORMAL ACCOMODATION - ENT Exam ENT Exam: Mucous Membranes Moist, Normal Exam - Respiratory Exam Respiratory Exam: Clear to Ausculation Bilateral, NORMAL BREATHING PATTERN - Cardiovascular Exam Cardiovascular Exam: +S1, +S2 - GI/Abdominal Exam GI & Abdominal Exam: Soft, Normal Bowel Sounds - Extremities Exam Extremities Exam: Full ROM, Normal Capillary Refill - Neurological Exam Neurological Exam: Alert, Awake - Skin Skin Exam: Dry, Normal Color, Warm Assessment and Plan - Assessment and Plan (Free Text) Assessment: A 77 year old female who came in to the ER due to shortness of breath associated with cough for past 3 days prior to admission.History of COPD and lung cancer. Quit smoking one month ago. 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 Shortness of breath probably secondary to underlying disease. Denies shortness of breath today, claimed to have no appetite.ECHO done- Normal LV size, LVEF 45-50%, mildly impaired systolic function, RV is mildly dilated, Trace aortic regurgitation,trace MR, moderate tricuspid regurgitation. RVSP 44mmHg. Post fall yesterday, Xray of hips and pelvis no fracture.orthostatic hypotension, bolus of NSS 500cc given. Plan: Post fall yesterday due to orthostatic hypotension Lying BP 106/60, Sitting BP 120/62, Standing BP 93/64 X ray of hips, sacrum and pelvis negative for fracture Bolus of 500 cc NSS given Will repeat vital signs, if still hypotensive Will order IV for hydration Denies shortness of breath Heart rate and blood pressure controlled On ASA 81 mg daily,Lovenox 30 mg daily,Lasix 40 mg every 12 hours Solumedrol 40 mg IV every 12 hours, Lopressor 25 mg BID Continue current treatment Continue current medications Chart reviewed Will follow up Plan and treatment discussed with Dr. Smith
[2018-03-19 07:23] LABS: HEMOGLOBIN 11.6 g/dL (12.0-16.0); MEAN CELL VOLUME 88.7 fl (80.0-105.0); MEAN CORPUSCULAR HEMOGLOBIN 29.1 pg (25.0-35.0); MEAN CORPUSCULAR HGB CONC 32.9 g/dl (31.0-37.0); MEAN PLATELET VOLUME 9.2 fl (7.0-11.0); RBC 3.98 10^6/uL (3.5-6.1); RED CELL DISTRIBUTION WIDTH 13.1 % (11.5-14.5); WHITE BLOOD COUNT 17.4 10^3/uL (4.5-11.0)
[2018-03-19 07:36] LABS: ALB/GLOB RATIO 1.1 (1.1-1.8); ALBUMIN 3.3 g/dL (3.0-4.8); ALT/SGPT 40 U/L (7-56); AST/SGOT 40 U/L (14-36); BLOOD UREA NITROGEN 26 mg/dL (7-21); CALCIUM 9.3 mg/dL (8.4-10.5); GFR NON-AFRICAN AMERICAN > 60
[2018-03-19] MEDS: Levalbuterol 0.63 MG/3 ML Inhal Soln UD IH SCH ×3 (08:26→20:09)
--- NOTE | 2018-03-19 10:06 | MRI ---
Date of service: 03/18/2018 PROCEDURE: MRI BRAIN WITH AND WITHOUT CONTRAST HISTORY: AMS COMPARISON: 01/10/2017 MRI TECHNIQUE: Multiplanar, multisequence MR images of the brain were obtained with and without intravenous contrast enhancement. 15 cc of Omniscan FINDINGS: HEMORRHAGE: None DWI: No evidence of an acute or early subacute infarction. BRAIN PARENCHYMA: No mass,mass effect or edema. Chronic microvascular changes are seen in the periventricular white matter. There is mild atrophy. Findings are unchanged. ENHANCEMENT: No abnormal intracranial enhancement. VENTRICLES: Unremarkable. No hydrocephalus. CRANIUM: Unremarkable. ORBITS: Grossly unremarkable. PARANASAL SINUSES/MASTOIDS: Clear VASCULAR SYSTEM: Skull base flow voids intact. OTHER FINDINGS: None . IMPRESSION: No acute intracranial findings
[2018-03-19] MEDS: MethylPREDNISolone 40 mg Vial IVP SCH ×2 (10:53→21:01)
[2018-03-19] MEDS: Enoxaparin 30 mg Syringe SC SCH (10:53)
[2018-03-19] MEDS: cefTRIAXone 1 gm 1 GM/100 ML BAG IVPB SCH (10:54)
[2018-03-19] MEDS: Non Formulary Medication (Fluticasone/Vilanterol [Breo Ellipta 100-25 Mcg Inh] 1 POW) IH SCH (11:55)
--- NOTE | 2018-03-19 16:11 | PN ---
DATE: 03/19/2018 This note is an addition to dictated by nurse practitioner. REASON FOR CONSULTATION: Shortness of breath, history of COPD, lung cancer, former smoker. SUBJECTIVE: The patient denies any chest pain, shortness of breath or any palpitations. Yesterday, the patient had orthostatic hypotension, IV fluid was given. Awaiting for today's blood pressure check for orthostasis. If the patient remains orthostasis, we will give IV fluids. Echo recently shows ejection fraction of 45% to 50%, mildly impaired systolic function, RV dilated, trace aortic regurgitation, trace mitral regurgitation, moderate tricuspid regurgitation, RV systolic pressure of 44. Continue antibiotics, follow up with orthostatic hypotension. Discussed with the nurse taking care for check orthostasis. Today blood workup, WBC 17.4, hemoglobin 11.6, hematocrit 35.3, platelet count 472. Chemistry shows sodium 139, potassium 3.9, chloride 100, carbon dioxide 30, anion gap of 26. Troponin remains flat. Thank you, Dr. Dean for providing us the opportunity in taking care of the patient, Caroline Ibarra. Brad Smith MD
--- NOTE | 2018-03-19 21:01 | PN ---
DATE: 03/19/2018 SUBJECTIVE: The patient is a 77-year-old female. The patient was seen and examined at the bedside on 03/19/2018, still confused. Actually in the morning, the patient was on one-to-one. Then, nurse practitioner Ayana discontinued one-to-one, but later on, I received call from the patient's nurse, Chiraa, that patient is still confused, trying to jump from the bed. The patient is not walking right, looks like she will fall. Then, I put her back on one-to-one. No fever. No chills. No hematuria, no hematochezia. No headache. No dizziness. No chest pain. No palpitation. PHYSICAL EXAMINATION: VITAL SIGNS: Temperature 97, pulse 70, respiratory rate 18, blood pressure 114/64, pulse oximetry 96. HEENT: Head normocephalic, atraumatic. Eyes PERRLA. Extraocular muscles intact. Conjunctivae clear. Nose patent. Mucous membrane moist. NECK: Supple. No carotid bruit. No JVD or thyromegaly. CHEST: Bilaterally symmetrical. HEART: S1 and S2 positive. LUNGS: Clear to auscultation. ABDOMEN: Soft. Bowel sounds present. No organomegaly. EXTREMITIES: No edema. No cyanosis. NEUROLOGICAL: The patient is awake and alert. Follow simple commands, but is confused. MEDICATIONS: Tylenol, Ecotrin, Lovenox, Pepcid, Lasix, Xopenex, Solu-Medrol, Lopressor, and Seroquel. LABORATORY DATA: Hemoglobin 13.3, hematocrit 34. Sodium 136, potassium 3.9, BUN 22, creatinine 0.8, glucose 124. ASSESSMENT AND PLAN: Ms. Caroline Ibarra is a 77-year-old lady with history of heavy smoking, lung cancer, came with shortness of breath associated with cough for past 3 days prior to admission, history of chronic obstructive pulmonary disease, lung cancer, quit smoking one month ago. CT of chest shows lung mass adjacent to the aortic arch encasing the left upper lobe pulmonary artery. Shortness of breath probably secondary to underlying disease. Denies fever, chills. Now, she has altered mental status. As per son, she never had that type of mental status, completely confused. Seen by the inspector plug seam, creative writing english professor, and neurologist. The patient has history of chronic obstructive pulmonary disease. CT of head was done which was negative. No metastatic lesion in the brain. The patient is not feeling better, still confused, altered mental status. Dr. Aponte started on Seroquel at night. Gastric, deep vein thrombosis prophylaxes. Length of time discussion done with nurse practitionerAyana. Repeat labs. We will follow up. Key Dean MD
--- NOTE | 2018-03-19 23:04 | PN ---
DATE: 03/19/2018 PULMONARY PROGRESS NOTE REFERRING PHYSICIAN: Key Dean MD SUBJECTIVE: She is sitting up in a chair under one-to-one supervision. Night was unremarkable. No headache. No rhinitis. No nausea, vomiting, or diarrhea. No leg pain or leg swelling. OBJECTIVE: GENERAL: In no acute distress. VITAL SIGNS: Temperature is 98, heart rate is 72, respiratory rate is 18, blood pressure is 130/68, and pulse ox is 97% on room air. HEENT: Moist mucous membranes. No ulcer or thrush noted. NECK: Supple. No JVD. LUNGS: Has a fair airflow with rhonchi. HEART: S1 and S2. ABDOMEN: Soft and nontender. No organomegaly. EXTREMITIES: No edema. NEUROLOGIC: Awake, alert and follows simple command. MEDICATIONS: She is on Ecotrin 81 mg daily, she is receiving Breo, but not available, Lasix 40 mg daily, metoprolol tartrate 25 mg twice a day, Lovenox 30 mg subcutaneously daily, Pepcid 40 mg daily, Rocephin 1 g daily, Seroquel 25 mg at bedtime, Solu-Medrol 20 mg every 12 hours, Tylenol p.r.n., and Xopenex inhaled every 8 hours. LABORATORY DATA: Shows hemoglobin 11.6, hematocrit 35.3, WBC 17.4, and platelet count is 472. Sodium 139, potassium 3.9, chloride 100, bicarbonate 30, BUN 26, creatinine 0.7, glucose is 81, and calcium is 9.3. AST 40, ALT 40, and alk phos is 95. Albumin is 3.3. Troponin 0.03. Microbiology; urine culture, there is no growth. IMPRESSION AND PLAN: Unresectable lung cancer, chronic obstructive lung disease, history of cardiomyopathy, decreased left ventricular function, pulmonary hypertension, leukocytosis and change in mental status. Pulmonary point view, she is doing well. Continue taper dose of steroids, antibiotics,gastric prophylaxis, and deep venous thrombosis prophylaxis. Awaiting for MRI of the brain, which actually reported no acute intracranial finding reported. Fall precaution. Thank you and we will follow with you. Brad Rocha MD [facility] # [id number]
--- NOTE | 2018-03-20 07:44 | CP.PCM.PN ---
Subjective - Date & Time of Evaluation Date of Evaluation: 03/20/18 Time of Evaluation: 07:00 - Subjective Subjective: Awake, alert, no distress,wanted to go home Reason for consultation and follow up: Cardiac evaluation of shortness of breath, history of COPD and lung cancer,former smoker,othostatic hypotension Seen and examined by me and Dr. Smith Objective - Vital Signs/Intake and Output Vital Signs (last 24 hours): Temp Pulse Resp BP Pulse Ox 97.4 F L 72 18 130/68 97 03/19/18 16:15 03/19/18 17:49 03/19/18 16:15 03/19/18 17:49 03/19/18 16:15 - Medications Medications: Current Medications Acetaminophen (Tylenol 325mg Tab) 650 mg PO Q4H PRN PRN Reason: pain fever Acetaminophen (Tylenol 325mg Tab) 650 mg PO Q6H PRN PRN Reason: Pain, moderate (4-7) Aspirin (Ecotrin) 81 mg PO DAILY [facility] Last Admin: 03/19/18 10:53 Dose: 81 mg Enoxaparin Sodium (Lovenox) 30 mg SC DAILY [facility]; Protocol Last Admin: 03/19/18 10:53 Dose: 30 mg Famotidine (Pepcid) 40 mg PO HS [facility] Last Admin: 03/19/18 21:01 Dose: 40 mg Furosemide (Lasix) 40 mg PO DAILY [facility] Last Admin: 03/19/18 10:53 Dose: 40 mg Ceftriaxone Sodium (Rocephin 1 Gram Ivpb) 1 gm in 100 mls @ 100 mls/hr IVPB DAILY [facility]; Protocol Stop: 03/21/18 10:59 Last Admin: 03/19/18 10:54 Dose: 100 mls/hr Levalbuterol HCl (Xopenex) 0.63 mg IH TIDRESP [facility] Last Admin: 03/19/18 20:09 Dose: 0.63 mg Methylprednisolone (Solu-Medrol) 20 mg IVP Q12 [facility] Last Admin: 03/19/18 21:01 Dose: 20 mg Metoprolol Tartrate (Lopressor) 25 mg PO BRKDIN [facility] Last Admin: 03/19/18 17:49 Dose: 25 mg Non-Formulary Medication (Fluticasone/Vilanterol [Breo Ellipta 100-25 Mcg Inh]) 1 pow IH DAILY [facility] Last Admin: 03/19/18 11:55 Dose: Not Given Quetiapine Fumarate (Seroquel) 25 mg PO HS [facility]; Protocol Last Admin: 03/19/18 21:01 Dose: 25 mg - Labs Labs: 03/19/18 06:45 03/19/18 06:45 PT 15.0 SECONDS (9.4-12.5) H 03/16/18 13:45 INR 1.31 03/16/18 13:45 APTT 27.6 Seconds (25.1-36.5) 03/16/18 13:45 - Constitutional Appears: Non-toxic, No Acute Distress - Head Exam Head Exam: NORMAL INSPECTION, NORMOCEPHALIC - Eye Exam Eye Exam: Normal appearance Pupil Exam: NORMAL ACCOMODATION - ENT Exam ENT Exam: Mucous Membranes Moist, Normal Exam - Respiratory Exam Respiratory Exam: Clear to Ausculation Bilateral, NORMAL BREATHING PATTERN - Cardiovascular Exam Cardiovascular Exam: +S1, +S2 - GI/Abdominal Exam GI & Abdominal Exam: Soft, Normal Bowel Sounds - Extremities Exam Extremities Exam: Full ROM, Normal Capillary Refill - Neurological Exam Neurological Exam: Alert, Awake Additional comments: periods of confusion - Psychiatric Exam Psychiatric exam: Normal Affect, Normal Mood - Skin Skin Exam: Dry, Normal Color, Warm Assessment and Plan - Assessment and Plan (Free Text) Assessment: A 77 year old female who came in to the ER due to shortness of breath associated with cough for past 3 days prior to admission.History of COPD and lung cancer. Quit smoking one month ago. 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 Shortness of breath probably secondary to underlying disease. Denies shortness of breath today, claimed to have no appetite.ECHO done- Normal LV size, LVEF 45-50%, mildly impaired systolic function, RV is mildly dilated, Trace aortic regurgitation,trace MR, moderate tricuspid regurgitation. RVSP 44mmHg. Post fall , Xray of hips and pelvis no fracture.orthostatic hypotension, bolus of NSS 500cc given. Repeat vital signs normal after IV bolus. Clinically stable Plan: No distress,Denies shortness of breath Repeat vital signs, normal Lying BP 103/53 Sitting BP 100/55 Standing BP 101/51 Heart rate controlled Cardiac status stable Periods of confusion, placed back to 1:1 sitter On ASA 81 mg daily,Lovenox 30 mg daily,Lasix 40 mg every 12 hours Solumedrol 40 mg IV every 12 hours, Lopressor 25 mg BID Continue current treatment Continue current medications Chart reviewed Will follow up Plan and treatment discussed with Dr. Smith
[2018-03-20] MEDS: Levalbuterol 0.63 MG/3 ML Inhal Soln UD IH SCH ×3 (08:31→20:11)
[2018-03-20] MEDS: Non Formulary Medication (Fluticasone/Vilanterol [Breo Ellipta 100-25 Mcg Inh] 1 POW) IH SCH (10:24)
[2018-03-20] MEDS: Enoxaparin 30 mg Syringe SC SCH (10:26)
[2018-03-20] MEDS: cefTRIAXone 1 gm 1 GM/100 ML BAG IVPB SCH (10:26)
[2018-03-20] MEDS: MethylPREDNISolone 40 mg Vial IVP SCH (10:27)
--- NOTE | 2018-03-20 16:42 | PN ---
DATE: 03/20/2018 SEX OF THE PATIENT: Female. AGE OF THE PATIENT: 77. REASON FOR CONSULTATION AND FOLLOWUP: Shortness of breath, COPD, lung cancer, former smoker. SUBJECTIVE: The patient denies any chest pain or shortness of breath, it is still 1:1. PHYSICAL EXAMINATION: VITAL SIGNS: Repeat blood pressure done, no evidence of orthostatic , blood pressure 103/58, sitting 100 and standing 101/54. ASSESSMENT: Hemodynamically, the patient is stable and no dizziness. Echo done shows ejection fraction of 45% to 50%, mildly depressed systolic function, right ventricle dilated, trace aortic regurgitation, mitral regurgitation, mild tricuspid regurgitation, diastolic pressure of 44. RECOMMENDATIONS: Continue antibiotics, no evidence of orthostatic hypotension. We will sign off. We are glad to follow up p.r.n. Discharge planning. This note is in addition to a note dictated by nurse practitioner and we are glad to follow p.r.n. Now, we will sign off. Brad Smith MD
[2018-03-20] MEDS ORDERED: MethylPREDNISolone 40 mg Vial IVP SCH (22:00)
--- NOTE | 2018-03-21 00:31 | PN ---
DATE: 03/20/2018 PULMONARY PROGRESS NOTE REFERRING PHYSICIAN: Key Dean MD SUBJECTIVE: She is sitting at the side of the bed. Son and family are at bedside. Day was unremarkable, little more clear than previous days. No headaches. No rhinitis. No nausea. No vomiting or diarrhea. No leg pain or leg swelling. OBJECTIVE: GENERAL: In no acute distress. VITAL SIGNS: Temperature is 98, heart rate is , respiratory rate is 20, blood pressure is 107/60, and pulse ox 98% on room air. HEENT: Moist mucous membranes. No ulcer or thrush noted. NECK: Supple. No JVD. LUNGS: Has a fair airflow with few rhonchi. HEART: S1 and S2. ABDOMEN: Soft and nontender. No organomegaly. EXTREMITIES: There is no edema. NEUROLOGIC: Awake, alert, and follow simple commands, but confused at times. MEDICATIONS: She is on Ecotrin 81 mg daily, Lasix 40 mg daily, metoprolol tartarate 25 mg twice a day, Lovenox 30 mg subcutaneously daily, Pepcid 40 mg at bedtime, Rocephin 1 g IV daily, Seroquel 25 mg at bedtime, Solu-Medrol 10 mg twice a day, and Tylenol p.r.n. LABORATORY DATA: Shows hemoglobin 11.6, hematocrit 35.3, WBC 17,000, and platelet is 472. Sodium 139, potassium 3.9, chloride 100, bicarbonate 30, BUN 26, creatinine 0.7, glucose 81, calcium 9.3, AST 40, ALT 40, alkaline phosphatase is 95, and albumin is 3.3. IMPRESSION AND PLAN: Unresectable lung cancer, chronic obstructive lung disease, history of cardiomyopathy, decreased left ventricular function, pulmonary hypertension, leukocytosis, and change of mental status. Pulmonary point of view, she is doing well. We will discontinue Solu-Medrol, placed her on prednisone 10 mg daily. Antibiotics as per Infectious Disease. I spoke to the patient's family at bedside and all the questions answered. I also spoke to nursing staff why is her mental status is her dementia. According to family, she is getting to her baseline, but still a little confused. Fall precautions. Thank you and we will follow with you. Brad Rocha MD
[2018-03-21 07:30] LABS: HEMOGLOBIN 12.3 g/dL (12.0-16.0); MEAN CELL VOLUME 88.6 fl (80.0-105.0); MEAN CORPUSCULAR HEMOGLOBIN 29.2 pg (25.0-35.0); MEAN PLATELET VOLUME 9.2 fl (7.0-11.0); RBC 4.21 10^6/uL (3.5-6.1); WHITE BLOOD COUNT 22.8 10^3/uL (4.5-11.0)
[2018-03-21 07:41] LABS: BLOOD UREA NITROGEN 22 mg/dL (7-21)
[2018-03-21 07:42] LABS: GFR NON-AFRICAN AMERICAN > 60
[2018-03-21] MEDS: Levalbuterol 0.63 MG/3 ML Inhal Soln UD IH SCH ×3 (07:58→19:28)
[2018-03-21] MEDS: Non Formulary Medication (Fluticasone/Vilanterol [Breo Ellipta 100-25 Mcg Inh] 1 POW) IH SCH (10:34)
[2018-03-21] MEDS: Enoxaparin 30 mg Syringe SC SCH (10:35)
[2018-03-21] MEDS: cefTRIAXone 1 gm 1 GM/100 ML BAG IVPB SCH (10:35)
[2018-03-21] MEDS: POLYETHYLENE GLYCOL 3350 17 GM/Dose PACKET PO SCH (14:34)
--- NOTE | 2018-03-21 18:45 | PN ---
DATE: 03/21/2018 REFERRING PHYSICIAN: Key Dean MD SUBJECTIVE: She is lying in the bed with head of the bed elevated at 45 degrees. Son and family is at bedside. Night was remarkable, got confused at one point junior sales assistant, but presently she is awake, alert, follows simple commands, and wants to go home. No headache or rhinitis. No nausea, vomiting, diarrhea, leg pain or leg swelling. OBJECTIVE: VITAL SIGNS: Temperature 98, heart rate 79, respiratory rate 20, blood pressure 99/60, pulse ox 94% on room air. HEENT: Moist mucous membranes. No ulcer or thrush. NECK: Supple. No JVD. LUNGS: Few scattered rhonchi, but overall fair airflow. HEART: S1 and S2. ABDOMEN: Soft, nontender. No organomegaly. EXTREMITIES: There is no edema. NEUROLOGICAL: Awake, alert, does follow simple commands. MEDICATIONS: She is on Colace 100 mg twice a day, aspirin 81 mg daily, Lasix 40 mg daily, metoprolol tartrate 25 mg daily, Lovenox 30 mg subcu daily, MiraLax 17 g daily, Pepcid 40 mg daily, prednisone 10 mg daily, Seroquel 25 mg h.s., Tylenol p.r.n. basis. Xopenex inhaled every 8 hours. LABORATORY DATA: Hemoglobin 12.3, hematocrit 37.3, WBC 22,000, platelets 526. Sodium 136, potassium 3.7, chloride 96, bicarbonate 31, BUN 22, creatinine 0.5, glucose is 83, calcium is 9.0. Microbiology, urine culture, there is no growth. IMPRESSION: Unresectable lung cancer, chronic obstructive lung disease, cardiomyopathy, decreased LV function, pulmonary hypertension, leukocytosis, change in mental status. PLAN: Spoke to the patient's son and family at bedside. All the questions answered. Also spoke to nursing staff. Clinically, she is much better. I am going to discontinue her prednisone, follow leukocytosis in the morning. I had a long discussion with the patient's son who will be taking her at his home, but he is working almost 10 hours a day and she will be alone. At present time, she gets confused and it may not be safe. She may benefit from home care, but at the same time I will suggest getting her to [facility] for a few days and see if she is improved mentally. Also awaiting for Dr. Souza to see the patient. She has unresectable lung cancer. Overall, prognosis is poor. Fall precautions. Thank you and we will follow with you. Brad Rocha MD
--- NOTE | 2018-03-21 23:17 | CON ---
DATE: 02/18/2018 HISTORY OF PRESENT ILLNESS: The patient is a 77-year-old white female with multiple medical issues. Please see medical progress notes for full listing of current medical problems, history of dementia, although relatively unknown psychiatric history and Psychiatry was called due to her increased confusion. I reviewed recent notes. I spoke with Nursing and spoke with the patient at bedside. The patient is calm, cooperative, pleasant. She appears a little malnourished, however, bright and alert during my questioning. She is aware that she is in the hospital, it is 03/2018. The patient also reports that she feels confused at times, and she goes in and out of being oriented. However, she denies any psychiatric symptoms of depression and anxiety, and reports she is sleeping well. She is not suicidal or homicidal. She denies having any hallucination, and review of recent progress notes indicate that her clarity and orientation have improved while she has been hospitalized. However, there is an issue of the patient being able to take care of herself, as she is delusional and has poor memory. The patient indicates that she has two living sons; however, only one of her son is alive. She also indicates that her lives with her at times; however, her 25 years ago. She continues to tell me these things during course of my questioning, and Nursing confirms that this is something she has been believing or repeating while she has been on the unit. In this respect, the patient does appear to be much more confused than what she appears to be on a superficial basis, and I have questions about whether patient can care for herself appropriately due to her fundamental problems with memory and current social orientation and circumstances. Her insight and judgment appears to be impaired in this respect. PSYCHIATRIC HISTORY: The patient denies any form of psychiatric history. SOCIAL HISTORY: The patient reports that she was born and raised in [place]. She was , indicates she continues to be , but speaking with Nursing again, it does appear that her actually 25 years ago. The patient reports that she has two sons, however, one of them is actually . 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 IMPRESSION: The patient has dementia, possibly worsening, possibly affected by concurrent delirium, as delirium take weeks to resolve after initial medical issue has been addressed. RECOMMENDATIONS: At this time, Psychiatry does not feel comfortable clearing the patient psychiatrically for discharge, as there is no guarantee that she can take of herself due to her intermittent confusion, which she subjectively also describes as well as her memory issues, which she does not appear to be aware of during the course of my conversation. Medical team should follow up on determining a safe social disposition for patient, whether it would be living with her family members with supervision in that respect and having a home health aide coming on daily basis in this regard or being discharged to a senior care. Psychiatry has signed off at this time. The patient to consult ching. Dylon Downing MD
--- NOTE | 2018-03-22 00:03 | PN ---
DATE: 02/18/2018 SUBJECTIVE: The patient is a 77-year-old female. The patient was seen and examined at bedside on 03/21/2018. Looking comfortable. No nausea, vomiting, or diarrhea. No hematuria or hematochezia. No swelling of the legs. No chest pain. No palpitation. The patient's family, son and [id number] were sitting on the bedside. The patient's mental level is better. PHYSICAL EXAMINATION: VITAL SIGNS: Temperature 98, heart rate 79, respiratory rate 20, blood pressure 99/60, pulse oximetry 94% on room air. HEENT: Head normocephalic, atraumatic. Eyes PERRLA. Extraocular muscles intact. Conjunctivae clear. Nose patent. Mucous membrane moist. NECK: Supple. No carotid bruit. No JVD or thyromegaly. CHEST: Bilaterally symmetrical. HEART: S1 and S2 positive. LUNGS: Clear to auscultation. ABDOMEN: Soft. Bowel sounds positive. No organomegaly. EXTREMITIES: No edema. No cyanosis. NEUROLOGICAL: The patient is alert. Follows simple commands. MEDICATIONS: Colace, aspirin, Lasix, metoprolol, Lovenox, MiraLax, Pepcid, prednisone, Seroquel, and Xopenex. LABORATORY DATA: Hemoglobin 12.3, hematocrit 37.3, white blood cells 22,000, platelets 526. Sodium 133, potassium 3.7, BUN 22, creatinine 0.5, glucose 83. ASSESSMENT AND PLAN: Ms. Caroline Ibarra is a 77-year-old female, has unresectable lung cancer, chronic obstructive lung disease, cardiomyopathy, decreased left ventricular function, pulmonary hypertension, leukocytosis, altered mental status, deconditioned. Length of time discussion done with the patient's son and his . All questions answered and spoke to the patient's nurse, Neda. Clinically, the patient is improving, but the patient lives alone by herself and son is not comfortable with that. He wants to take his mother with him in the sake , but he is working and his is working. According to him, he wanted to get help from [facility] and he is not feeling safe living alone with this all situation. I have discussion done with Neda. We will either do Transitional Care Unit or may be [facility] will contact insurance and will get some arrangement to fill the gap when family is not around with the patient, home health aide, visiting nurse. Waiting for the Social Service's input or waiting for the bed in Transitional Care Unit. Physical therapy. We will follow up. Key Dean MD MTDBrisa
[2018-03-22 06:49] LABS: HEMOGLOBIN 12.6 g/dL (12.0-16.0); MEAN CELL VOLUME 88.1 fl (80.0-105.0); MEAN CORPUSCULAR HEMOGLOBIN 29.4 pg (25.0-35.0); MEAN CORPUSCULAR HGB CONC 33.4 g/dl (31.0-37.0); MEAN PLATELET VOLUME 9.1 fl (7.0-11.0); RBC 4.28 10^6/uL (3.5-6.1); RED CELL DISTRIBUTION WIDTH 13.1 % (11.5-14.5); WHITE BLOOD COUNT 21.9 10^3/uL (4.5-11.0)
[2018-03-22] MEDS: Levalbuterol 0.63 MG/3 ML Inhal Soln UD IH SCH ×2 (08:00→13:50)
--- NOTE | 2018-03-22 09:15 | PN ---
DATE: 03/20/2018 SUBJECTIVE: The patient is a 77-year-old female. The patient was seen and examined at the bedside on 03/20/2018. Looking comfortable. No nausea, vomiting, or diarrhea. No hematuria, no hematochezia. No swelling of the legs. Mental level is a little bit better today. The patient was on one-to-one, re-instituted yesterday because of the patient's mental condition. Today, discontinue the one-to-one. Put the patient on every 15 minutes watch by the nursing staff and we will observe for 24 hours. Actually, the patient lives alone but son comes for just a check on her. If tomorrow she does better, we will the patient or if still behavior problem, then we will talk to psychiatrist about that behavioral problem. PHYSICAL EXAMINATION: VITAL SIGNS: Temperature 97.4, pulse 72, respiratory rate 18, blood pressure 130/68, pulse oximetry 97. HEENT: Head normocephalic, atraumatic. Eyes PERRLA. Extraocular muscles intact. Conjunctivae clear. Nose patent. NECK: Supple. No carotid bruit. No JVD or thyromegaly. CHEST: Bilaterally symmetrical. HEART: S1 and S2 positive. LUNGS: Clear to auscultation. ABDOMEN: Soft. Bowel sounds present. No organomegaly. EXTREMITIES: No edema. No cyanosis. NEUROLOGICAL: The patient is awake and alert. Follows simple commands. MEDICATIONS: Tylenol, Ecotrin, Lovenox, Pepcid, paroxetine, Xopenex, Solu-Medrol tapering doses, and metoprolol. LABORATORY DATA: White blood cell is 17.4, hemoglobin 11.6, hematocrit 35.3, platelets 473. Sodium 139, potassium 3.9, BUN 26, creatinine 0.7, glucose 81. ASSESSMENT AND PLAN: Ms. Caroline Ibarra is a 77-year-old lady with leukocytosis, anemia, thrombocytosis, came with shortness of breath associated with cough for 3 days, history of chronic obstructive pulmonary disease and lung cancer, quit smoking one month ago. CT showed lung mass adjacent to aortic arch, encasing the left upper lobe, pulmonary artery. Shortness of breath is getting better. Echocardiogram is done by the Cardiology. X-ray of the hip and pelvis, no fracture. Orthostatic hypotension. Bolus of given. Discussion done with nurse practitioner, Chasity. Plan discussed with the nursing staff also. We will continue tapering dose of steroid. Continue present treatment. We will observe the patient overnight after discontinuing one-to-one, every 15 minutes watch by nursing staff and we will plan tomorrow. We will repeat labs. Physical therapy, out of bed. We will follow up. Key Dean MD
[2018-03-22] MEDS: Enoxaparin 30 mg Syringe SC SCH (09:54)
[2018-03-22] MEDS: POLYETHYLENE GLYCOL 3350 17 GM/Dose PACKET PO SCH (09:56)
[2018-03-22] MEDS: Non Formulary Medication (Fluticasone/Vilanterol [Breo Ellipta 100-25 Mcg Inh] 1 POW) IH SCH (09:56)
--- NOTE | 2018-03-22 10:08 | CP.PCM.CON ---
<Harrison Lan - Last Filed: 03/22/18 10:01> History of Present Illness - History of Present Illness History of Present Illness: PGY-2 GI consult note for Dr Medellin Mrs Ibarra is a 77 year old female, with past medical history of COPD and unresectable squamous cell Lung CA, who presented to the Emergency Department complaining of shortness of breath associated with cough for past 3 days. Patient stated her symptoms are similar to her past episodes of COPD. As per son, patient has not been started on chemotherapy yet secondary to insurance complications. GI has been consulted for mild abdominal pain and constipation. Heme/Onc: Dr Souza PMHx: COPD and unresectable squamous cell Lung CA Allergies: NKA SocialHx: 45 pack year smoking hx, hx of alcohol use disorder - currently non- drinker Home Medications: ipratropium, breo, albuterol FamHx: denies hx of colon cancer Review of Systems - Constitutional Constitutional: absent: Chills, Fever - EENT Eyes: absent: Change in Vision - Cardiovascular Cardiovascular: absent: Chest Pain, Chest Pain with Activity - Respiratory Respiratory: absent: Cough, Dyspnea, Hemoptysis - Gastrointestinal Gastrointestinal: Bloating, Constipation, Melena. absent: Diarrhea - Genitourinary Genitourinary: absent: Dysuria - Musculoskeletal Musculoskeletal: absent: Back Pain Past Patient History - Infectious Disease Hx of Infectious Diseases: None - Tetanus Immunizations Tetanus Immunization: Unknown - Past Social History Smoking Status: Former Smoker - CARDIAC Hx Congestive Heart Failure: Yes - PULMONARY Hx Chronic Obstructive Pulmonary Disease (COPD): Yes - NEUROLOGICAL Hx Neurological Disorder: No - HEENT Hx HEENT Problems: Yes (wears glasses) - RENAL Hx Chronic Kidney Disease: No - ENDOCRINE/METABOLIC Hx Endocrine Disorders: No - HEMATOLOGICAL/ONCOLOGICAL Hx Blood Disorders: Yes Hx Cancer: Yes (lung ca, bladder tumor) Hx Chemotherapy: No - INTEGUMENTARY Hx Dermatological Problems: No - MUSCULOSKELETAL/RHEUMATOLOGICAL Hx Musculoskeletal Disorders: Yes Hx Falls: No Hx Unsteady Gait: Yes - GASTROINTESTINAL Hx Gastrointestinal Disorders: No - GENITOURINARY/GYNECOLOGICAL Hx Genitourinary Disorders: Yes Hx Urinary Tract Infection: Yes - PSYCHIATRIC Hx Psychophysiologic Disorder: No Hx Emotional Abuse: No Hx Physical Abuse: No Hx Substance Use: No - SURGICAL HISTORY Hx Surgeries: Yes (bladder tumor removal) - ANESTHESIA Hx Anesthesia Reactions: No Hx Malignant Hyperthermia: No Meds Home Medications: Home Medication List Medication Instructions Recorded Confirmed Type Acetaminophen [Tylenol 325mg tab] 650 mg PO Q6H PRN tab 03/19/18 Rx Aspirin [Ecotrin] 81 mg PO DAILY tabec 03/19/18 Rx Famotidine [Pepcid] 40 mg PO HS tab 03/19/18 Rx Fluticasone/Vilanterol [Breo 1 pow IH DAILY 03/19/18 Rx Ellipta 100-25 Mcg INH] QUEtiapine [Seroquel] 25 mg PO HS 30 Days #30 tab 03/19/18 Rx Docusate [Colace] 100 mg PO BID cap 03/22/18 Rx Thiamine [Vitamin B1 Inj] 300 mg PO DAILY #30 vial 03/22/18 Rx Allergies/Adverse Reactions: Allergies Allergy/AdvReac Type Severity Reaction Status Date / Time No Known Allergies Allergy Unverified 06/30/14 10:53 - Medications Medications: Current Medications Acetaminophen (Tylenol 325mg Tab) 650 mg PO Q4H PRN PRN Reason: pain fever Acetaminophen (Tylenol 325mg Tab) 650 mg PO Q6H PRN PRN Reason: Pain, moderate (4-7) Aspirin (Ecotrin) 81 mg PO DAILY [facility] Last Admin: 03/21/18 10:34 Dose: 81 mg Docusate Sodium (Colace) 100 mg PO BID [facility] Enoxaparin Sodium (Lovenox) 30 mg SC DAILY [facility]; Protocol Last Admin: 03/21/18 10:35 Dose: 30 mg Famotidine (Pepcid) 40 mg PO HS [facility] Last Admin: 03/21/18 21:15 Dose: 40 mg Furosemide (Lasix) 40 mg PO DAILY [facility] Last Admin: 03/21/18 10:35 Dose: 40 mg Levalbuterol HCl (Xopenex) 0.63 mg IH TIDRESP [facility] Last Admin: 03/22/18 08:00 Dose: 0.63 mg Metoprolol Tartrate (Lopressor) 25 mg PO BRKDIN [facility] Last Admin: 03/21/18 17:25 Dose: Not Given Non-Formulary Medication (Fluticasone/Vilanterol [Breo Ellipta 100-25 Mcg Inh]) 1 pow IH DAILY [facility] Last Admin: 03/21/18 10:34 Dose: Not Given Polyethylene Glycol (Miralax) 17 gm PO DAILY [facility] Last Admin: 03/21/18 14:34 Dose: 17 gm Quetiapine Fumarate (Seroquel) 25 mg PO HS [facility]; Protocol Last Admin: 03/21/18 21:15 Dose: 25 mg Physical Exam - Constitutional Appears: Well, No Acute Distress - Head Exam Head Exam: ATRAUMATIC, NORMAL INSPECTION - Eye Exam Eye Exam: EOMI, Normal appearance, PERRL. absent: Scleral icterus - ENT Exam ENT Exam: Mucous Membranes Moist - Respiratory Exam Respiratory Exam: Rhonchi, Wheezes, NORMAL BREATHING PATTERN. absent: Chest Wall Tenderness, Respiratory Distress - Cardiovascular Exam Cardiovascular Exam: Tachycardia, REGULAR RHYTHM, +S1, +S2, Systolic Murmur - GI/Abdominal Exam GI & Abdominal Exam: Normal Bowel Sounds, Soft. absent: Distended, Firm, Guarding, Hernia, Tenderness - Neurological Exam Neurological exam: Alert, Oriented x3 - Skin Skin Exam: Normal Color, Warm Results - Vital Signs Recent Vital Signs: Last Vital Signs Temp 97.3 F L 03/22/18 08:13 Pulse 90 03/22/18 08:13 Resp 20 03/22/18 08:13 BP 112/77 03/22/18 08:13 Pulse Ox 96 03/22/18 08:13 - Labs Result Diagrams: 03/22/18 05:30 03/21/18 07:24 Labs: Laboratory Results - last 24 hr 03/22/18 05:30 WBC 21.9 H RBC 4.28 Hgb 12.6 Hct 37.7 MCV 88.1 MCH 29.4 MCHC 33.4 RDW 13.1 Plt Count 556 H MPV 9.1 Assessment & Plan - Assessment and Plan (Free Text) Plan: Mrs Ibarra is a 77 year old female, with past medical history of COPD and unresectable squamous cell Lung CA, who presented to the Emergency Department complaining of shortness of breath. GI has been consulted for mild abdominal pain and constipation. Constipation -suprapubic abdominal pain however patient states she's making good urine -states she feels "backed up" -had small bowel movement yesterday which she said was black however hgb and mcv normal -tolerating regular diet without issues -continue miralax po qd and colace po bid -give one dulcolax 5mg po today -consider CT imaging if patient without bowel movement -f/u stool cdiff Previous imaging from 02/2018: -MRCP: * There is a 4 x 5 cm mass involving the gallbladder. It is uncertain if this mass arises from the liver and invades the gallbladder or arises from the gallbladder directly. Some stones are seen in the gallbladder fundus. Multiple metastatic lesions in the liver. -Abd ultrasound: * multiple hepatic masses suspicious for metastatic disease. Cholelithiasis. Irregular thickening of gallbladder wall raising suspecion of neoplastic invasion. Absent right kidney. Seen and discussed with Dr Medellin <Kika Medellin V - Last Filed: 03/22/18 23:55> Results - Vital Signs Recent Vital Signs: Last Vital Signs Temp 97.7 F 03/22/18 16:04 Pulse 87 03/22/18 17:13 Resp 18 03/22/18 16:04 BP 111/66 03/22/18 17:13 Pulse Ox 97 03/22/18 16:04 - Labs Result Diagrams: 03/22/18 05:30 03/21/18 07:24 Labs: Laboratory Results - last 24 hr 03/22/18 05:30 WBC 21.9 H RBC 4.28 Hgb 12.6 Hct 37.7 MCV 88.1 MCH 29.4 MCHC 33.4 RDW 13.1 Plt Count 556 H MPV 9.1 Attending/Attestation - Attestation I have personally seen and examined this patient.: Yes I have fully participated in the care of the patient.: Yes I have reviewed all pertinent clinical information: Yes
[2018-03-22] MEDS ORDERED: Bisacodyl 5mg EC Tab PO ONE (10:11)
[2018-03-22] MEDS: Simethicone 40 mg/0.6 ml Liquid (30 ml) PO SCH ×2 (13:31→17:14)
--- NOTE | 2018-03-22 14:41 | CP.PCM.PCO ---
Physician Communication Note - Physician Communication Note Physician Communication Note: psychiatry signed off
[2018-03-22 16:05] VITALS: BP 111/66; PULSE 87; RESP 18; TEMP 97.7; O2SAT 97
--- NOTE | 2018-03-23 04:13 | PN ---
DATE: 03/22/2018 PULMONARY PROGRESS NOTE REFERRING PHYSICIAN: Key Dean MD SUBJECTIVE: She is ambulating in the room. Night was unremarkable. Seen by Psychiatry. Sometimes forgetful and confused. Denying any headache. No rhinitis. No nausea, vomiting, diarrhea, leg pain or leg swelling. OBJECTIVE: GENERAL: In no acute distress. VITAL SIGNS: Temperature is 98, heart rate 87, respiratory rate is 18, blood pressure 111/66, pulse ox 97% on room air. HEENT: Moist mucous membranes. No ulcer or thrush noted. NECK: Supple. No JVD. LUNGS: Has a fair airflow with few rhonchi. HEART: S1 and S2. ABDOMEN: Soft, nontender. No organomegaly. EXTREMITIES: No edema. NEUROLOGICAL: Awake, alert, does follow simple commands. MEDICATIONS: Reviewed and noted. No new changes of medications since yesterday. LABORATORY DATA: Reviewed shows hemoglobin 12.6, hematocrit 37.7, WBC 22,000, platelet is 556. Sodium 136, potassium 3.7, chloride 96, bicarbonate 31, BUN 22, creatinine 0.5, glucose is 83, calcium is 9. IMPRESSION AND PLAN: Unresectable lung cancer, chronic obstructive lung disease, cardiomyopathy, decreased left ventricular function, pulmonary hypertension, leukocytosis, probably has dementia. Spoke to nursing staff in detail. According to the staff, the patient's son will be coming; he will have her stay with him and he understands the patient cannot live alone because of her confusion. She will be followed by Oncology as an outpatient for further chemotherapy. Fall precaution. Brad Rocha MD
== END 2018-03-22 19:43 | disposition home or self-care (01) | DRG 191 ==
LOC: ED 13:07 → ERH 16:05 → 3RNO 20:43 → 3RSO 03-17 11:30 → ERH 03-20 10:58 → 3RSO 03-20 10:59
PROVIDERS: ADMIT Internal Medicine; ATTEND Internal Medicine
DX: J44.1 Chronic obstructive pulmonary disease with (acute) exacerbation (principal); C34.92 Malignant neoplasm of unspecified part of left bronchus or lung; E87.1 Hypo-osmolality and hyponatremia; N39.0 Urinary tract infection, site not specified; I42.9 Cardiomyopathy, unspecified; E83.42 Hypomagnesemia; I50.9 Heart failure, unspecified; F10.10 Alcohol abuse, uncomplicated; I27.20 Pulmonary hypertension, unspecified; I95.1 Orthostatic hypotension; I08.3 Combined rheumatic disorders of mitral, aortic and tricuspid valves; F03.90 Unspecified dementia, unspecified severity, without behavioral disturbance, psychotic disturbance, mood disturbance, and anxiety; K59.00 Constipation, unspecified; R94.5 Abnormal results of liver function studies; Z79.82 Long term (current) use of aspirin; Z87.891 Personal history of nicotine dependence